=== PATIENT | female | born 2000 | race Two or more races ===

== ENCOUNTER 2024-01-19 18:32 | Emergency (ER) | payer OTHER ==
[~2024-01-19] VITALS: Ht 170.2 cm; Wt 59.9 kg
[2024-01-19 20:16] VITALS: BP 99/60; PULSE 70; RESP 18; TEMP 98.1; O2SAT 97
[2024-01-19] MEDS: LACTULOSE 20Gm/30ML SOLN PO ONE (20:16)
[2024-01-19] MEDS ORDERED: LACT10SO3 PO (20:29)
[2024-01-19] MEDS ORDERED: PHENSUP38 PR (20:29)
== END 2024-01-19 21:35 | disposition home or self-care (01) ==
LOC: ER 18:35
DX: K64.9 Unspecified hemorrhoids (principal); K59.00 Constipation, unspecified
CPT/HCPCS: 74018